=== PATIENT | male | born 1945 | race Caucasian/White ===

== ENCOUNTER → 2019-07-24 12:08 | Outpatient (CLI) | payer MEDICARE, OTHER, SELFPAY ==
--- NOTE | 2019-07-24 14:12 | NEURO ---
NCS and/or EMG Patient Report Ordering Doctor: Juanito Griffin DATE OF SERVICE: 07/24/19 Mian Ly is a 74 year old male who presents for electrodiagnostic testing of the left upper limb. He reports numbness and tingling in the first 4 digits of the left hand. Electrodiagnostic findings: Left median motor nerve demonstrates prolonged distal latency with normal amplitude and reduced conduction velocity. Normal left ulnar motor response, including conduction across the elbow. Prolonged left median sensory latency at the wrist. Prolonged left median palmar response. On needle EMG, all muscles tested in the left upper limb showed no evidence of denervation with normal motor unit action potentials. Electrodiagnostic impression: This is an abnormal study in the left upper limb. 1. Electrodiagnostic findings demonstrate left-sided median mononeuropathy. This is consistent with a moderate left carpal tunnel syndrome. If there are any further questions, please do not hesitate to contact me.
== END ==
PROVIDERS: PCP Family Medicine; Referring Provider Family Medicine; Visit Provider Family Medicine
DX: G56.02 Carpal tunnel syndrome, left upper limb (principal)
CPT/HCPCS: 95886; 95910